=== PATIENT | female | born 1965 | race Caucasian/White ===

== ENCOUNTER → 2017-03-08 | Outpatient (CLI) | payer BC ==
[~2017-03-08] MED LIST: ASA325 MG PO; CELEBREX200 MG PO; EFFEXOR XR75 MG PO; MIRALAX PACKET17 GM PO; OXY IR DPS5 MG PO; PROTONIX40 MG PO; SENOKOT S1 TAB PO; TYLENOL DPS325 MG PO; ULTRAM DPS50 MG PO; VASERETIC 5-12.1 TAB PO; ZOLOFT DPS50 MG PO
== END | disposition home or self-care (01) ==
LOC: PTH.S 10:56
DX: Z01.818 Encounter for other preprocedural examination (principal); I10 Essential (primary) hypertension

== ENCOUNTER 2017-03-23 10:10 | Inpatient (IN) | payer BC ==
[~2017-03-23] VITALS: Ht 162.6 cm; Wt 102.1 kg
--- NOTE | 2017-03-23 13:48 | HP ---
ADMIT: 03/23/2017 [facility] MR[facility] [id number] [address] [place] [id number] PETER TURNER [address] [place] [address] Pre-OP History and Physical SEX: F AGE: 51 : 1965 DATE OF SERVICE: CHIEF COMPLAINT: Left knee pain. HISTORY OF PRESENT ILLNESS: The patient is a 51-year-old white female with left knee DJD, severe on the patella. She has failed nonoperative measures. She desires total knee arthroplasty that she is several years and feels like she is ready for it. PAST MEDICAL HISTORY: Significant osteoarthritis, GERD, hypertension, and depression. PAST SURGICAL HISTORY: She has had knee replacement, knee arthroscopy, hysterectomy, and colonoscopy. MEDICATIONS: 1. Omeprazole. 2. Enalapril. 3. Zoloft. 4. Effexor. ALLERGIES: NO ALLERGIES. SOCIAL HISTORY: The patient does not smoke. Occasionally drinks alcohol. PHYSICAL EXAMINATION: HEENT: Normocephalic and atraumatic. CARDIOVASCULAR: Regular rate and rhythm. LUNGS: Benign. ABDOMEN: Benign. NEUROLOGIC: Awake and oriented x3. MUSCULOSKELETAL: Shows the patient has no effusion of the knee, full extension 130 degrees of flexion. Significant patellofemoral crepitus and pain. No ligamentous laxity. Tender at the medial joint line and the patellofemoral joint. ADMIT: 03/23/2017 RM[facility]LOC: [facility] MR#: [id number] [address] [place] [id number] PETER TURNER [address] [place] [address] Pre-OP History and Physical SEX: F AGE: 51 : 1965 IMAGING DATA: X-rays show left knee DJD, [id number] along the patellofemoral joint, medial compartment narrowing consistent with DJD. ASSESSMENT AND PLAN: Left knee degenerative joint disease. At this point in time, we will plan a left total knee arthroplasty. The patient understands the risks and benefits of the surgical intervention, which include but not limited to infection, DVT, arthrofibrosis, neurovascular injury, early loosening, etc and desires to proceed. She will see a medical doctor, Dr. Moreno, for preoperative medical clearance and will follow her postoperatively in the hospital for anticoagulation and medical issues that may arise. Please refer to that H and P for any in-depth medical issues or medication changes. Baljit Espinosa MD/ solitario JOB #: [id number] CC: Baljit Espinosa, Attending Physician UNKNOWN, Family Physician
[2017-03-26] MEDS ORDERED: ZOLOFT DPS50 MG PO (17:45)
[2017-03-26] MEDS ORDERED: PROTONIX40 MG PO (17:45)
[2017-03-26] MEDS ORDERED: EFFEXOR XR75 MG PO (17:45)
[2017-03-26] MEDS ORDERED: MIRALAX PACKET17 GM PO (17:46)
[2017-03-26] MEDS ORDERED: VASERETIC 5-12.1 TAB PO (17:46)
[2017-03-26] MEDS ORDERED: SENOKOT S1 TAB PO (17:46)
[2017-03-26] MEDS ORDERED: ASA325 MG PO (17:47)
[2017-03-26] MEDS ORDERED: CELEBREX200 MG PO (17:48)
[2017-03-26] MEDS ORDERED: ULTRAM DPS50 MG PO (17:48)
[2017-03-26] MEDS ORDERED: TYLENOL DPS325 MG PO (17:48)
[2017-03-26] MEDS ORDERED: OXY IR DPS5 MG PO (17:49)
--- NOTE | 2017-03-30 11:49 | OR ---
ADMIT: 03/23/2017 RM/LOC: [address] [facility] MR#: [id number] [facility]#: [id number] [address] [phone] PETER TURNER [address] [place] [id number] Operative/Delivery Room Report SEX: F AGE: 51 : 1965 SURGERY DATE: 03/23/2017 SURGEON: Baljit Espinosa MD PREOPERATIVE DIAGNOSIS: Left knee degenerative joint disease. POSTOPERATIVE DIAGNOSIS: Left knee degenerative joint disease. PROCEDURE PERFORMED: Left total knee arthroplasty with a Reginald and Reginald system, size 2.5 posterior stabilized femoral component, size 2.5 tibial tray. We used a size 38 patellar button, a 10 mm tibial insert. LYE PEEL OPERATOR: USHA Ruffin ANESTHESIA: Spinal. ESTIMATED BLOOD LOSS: Minimal. FLUIDS: Per anesthetic record. COMPLICATIONS: None. DRAINS: One. TOURNIQUET TIME: Approximately 56 minutes. CONDITION ON DISCHARGE: The patient returned to the recovery room in fair condition. INDICATIONS: The patient has been having left knee pain, refractory to nonoperative treatment. She has severe DJD of the knees, first along the patellofemoral joint. She desired total knee arthroplasty. She understood the risks and benefits of the procedure and desired to proceed with the operation. DESCRIPTION OF PROCEDURE: The patient was taken to the OR, transferred to the OR table. Spinal placed. She was laid in the supine position. All bony prominences were well padded. A well-padded tourniquet applied to the left lower extremity. The left lower extremity was prepped and draped in the usual sterile fashion. It was exsanguinated and tourniquet inflated to 350 mmHg. Incision was made starting over the medial aspect of the tibial tubercle, carried proximal to the patella through the skin and subcutaneous tissue with a skin knife. Medial arthrotomy was then performed with #10 blade. Patella everted, knee flexed. ACL, PCL, mediolateral menisci then excised. Step drill was then used to open the intramedullary canal of the femur. I placed an IM alignment guide with the distal femoral cutting block down the intramedullary canal of the femur, set at 11 mm of resection, 5 degrees of valgus cut and pinned it to the anterior aspect of the distal femur. I removed the IM alignment guide and cut the distal femur using an oscillating ADMIT: 03/23/2017 RM/LOC: [address] [facility] MR#: [id number] [address] [id number] [address] [place] [address] Operative/Delivery Room Report SEX: F AGE: 51 : 1965 saw. I removed this cutting block and sized the distal femur at a 2.5. I placed a 2.5 four-in-one cutting block on the distal aspect of the femur in 3 degrees of external rotation. I made the 4 appropriate cuts using an oscillating saw. I removed this cutting block, placed the box cutting jig on the distal aspect of the femur. I cut the box of the distal femur using a reciprocating saw. The proximal tibia was then cut perpendicular to the long axis of the tibial shaft using the proximal tibial cutting guide and oscillating saw. The posterior aspect of the patella was cut flush with the posterior aspect of the quadriceps, patella tendons using the patella cutting saw, this was sized to a 38 and step drilled with the guide. Trial components were then placed. A 2.5 tibial tray with a 10 mm insert gave excellent range of motion, stability, and patellar tracking. Thus, the femoral component was step drilled. The tibial component was step drilled and cruciate punched. The trial components were then removed. The knee was thoroughly injected with Exparel-like compound and the knee was thoroughly irrigated with bacitracin solution and dried. I then cemented the tibia, patella, and femoral components into place removing all the extraneous cement as it dried. I then impacted the 10 mm insert in the tibial tray and ran the knee through range of motion. It had excellent range of motion, stability, and patellar tracking. Thus, one deep drain was then placed. The medial arthrotomy was closed using #1 Vicryl. Subcutaneous tissue was closed using 2-0 Vicryl. Skin was closed using crystal. Wounds were washed, dried, and dressed with sterile Adaptic, 4x4s, ABD, Webril, and an Aleksey wrap. Drapes were removed. Tourniquet was let down. The patient was transferred back to the recovery room in fair condition. Baljit Espinosa MD/ solitario JOB #: [id number] CC: Baljit Espinosa, Attending Physician Jazlyn Moreno, Family Physician
--- NOTE | 2017-03-31 07:28 | CO ---
ADMIT: 03/23/2017 RM/LOC: [facility] MR#: [id number] [address] [address] PETER VALVERDE [address] [place] [id number] Consultation Report SEX: F AGE: 51 : 1965 DATE OF CONSULTATION: 03/08/2017 ATTENDING PHYSICIAN: Baljit Espinosa CONSULTING PHYSICIAN: Jazlyn Moreno MD HISTORY OF PRESENT ILLNESS: Ms. Valverde presents today in clinic for preop evaluation for planned left total knee arthrotomy to be performed by Dr. Espinosa on 03/23/2017. She has a past medical history of degenerative arthritis and had three surgical procedures on her right knee with ultimate total knee arthrotomy. She has a history of depression, history of vasomotor instability, recurrent hot flashes, history of gastroesophageal reflux disease, and history of hypertension, which is stable. She reports that she has had progressive pain and discomfort in this left knee and presents for surgical intervention. FAMILY HISTORY: Her father had an aortic aneurysm. Her mother had heart disease and diabetes. CURRENT MEDICATIONS: 1. Enalapril/hydrochlorothiazide 5/12.5 one tablet daily. 2. Ibuprofen 200 mg 8 tablets p.o. every 6 hours as needed. 3. Omeprazole 40 mg daily. 4. Sertraline 50 mg daily. 5. Tramadol 50 mg 1 tablet every 6 hours p.r.n. 6. Venlafaxine ER 75 mg daily. SOCIAL HISTORY: She is . No tobacco or alcohol. CURRENT ALLERGIES: To hay fever, ragweed, and trees, as well as she has gastric intolerance to Augmentin and Zithromax. REVIEW OF SYSTEMS: She reports that her general sense of health is good. She does have a history of being overweight. Her activity tolerance and endurance is stable. She has a young grandchild, which she is very much involved in his care, so she is very busy with him and his activities. She has had no anterior chest pain or chest pressure. Denies any increasing shortness of breath or respiratory distress. Denies any changes in her bowel or bladder habits or any other significant arthritic complaints. PHYSICAL EXAMINATION: GENERAL: She is alert, articulate. HEENT: Normal. HEART: Regular rhythm without murmur or rub. No JVD. No carotid bruit. HEART: Regular rhythm. LUNGS: Clear, but diminished to auscultation. ABDOMEN: Soft, nontender, and nondistended. EXTREMITIES: No evidence of edema. ADMIT: 03/23/2017 RM/LOC: [facility] MR#: [id number] [address] [address] [place] [address] Consultation Report SEX: F AGE: 51 : 1965 LABORATORY DATA: White blood cell count is 5.6, hemoglobin 12.4, and platelet count of 280,000. Sodium of 140, potassium 4.2, BUN and creatinine of 16 and 1.0. Blood sugar of 99. Her EKG showed normal sinus rhythm. ASSESSMENT: Admission of a 51-year-old, white female for planned left total knee arthrotomy. Past medical history of hypertension, vasomotor instability with hot flashes, history of gastroesophageal reflux disease, chronic knee pain, and degenerative arthritis. At this time, I see no contraindications proceeding with surgery. She will be a good candidate for full strength aspirin therapy in the postop. I will follow her closely and we will continue her care throughout her hospitalization. Jazlyn Moreno MD/ solitario JOB #: [id number] CC: Baljit Espinosa, Attending Physician UNKNOWN, Family Physician
--- NOTE | 2017-04-13 13:40 | DS ---
ADMIT: 03/23/2017 RM/LOC: [facility] MR#: [id number] [facility]#: [id number] [address] [address] PETER TURNER [address] [place] [id number] General Discharge Summary SEX: F AGE: 51 : 1965 ADMISSION DATE: 03/23/2017 DISCHARGE DATE: 03/25/2017 DATE OF SURGERY: 03/23/2017. REASON FOR ADMISSION: An elective left total knee arthroplasty. HISTORY OF PRESENT ILLNESS: A 51-year-old, white female with left knee degenerative joint disease with markedly severe patellofemoral arthritis. She has failed nonoperative measures and now she desires for an elective total knee arthroplasty at this point. She has been put off for several years and would like to proceed with it. PREOPERATIVE DIAGNOSIS: Left knee degenerative joint disease. POSTOPERATIVE DIAGNOSIS: Left knee degenerative joint disease. PROCEDURE PERFORMED: Left total knee arthroplasty. SURGEON: Baljit Espinosa MD UTILITY WORKER ROLLER SHOP: USHA Slaughter COMPLICATIONS: None. ESTIMATED BLOOD LOSS: Minimal. ANESTHESIA: Spinal. PAST MEDICAL HISTORY: 1. Osteoarthritis. 2. GERD. 3. Hypertension. 4. Depression. HOSPITAL COURSE: The patient was admitted on 03/23/2017 and discharged on 03/25/2017, with a length of stay of 2 days and discharge disposition home with self-care. While the patient was in the hospital, the pain was well managed with oral analgesics as well as intravenous analgesics from time to time as necessary. Each day they were in the hospital, they were seen by Orthopedics. Questions and concerns were answered and addressed at that time. The patient's vital signs stable, within normal limits, and her hemoglobin fell to a low of 9.7. Overall, the patient handled the acute postoperative phase of the procedure very well. They also worked with occupational and physical therapy services. There are no questions on either libertarian with that. They met with Social Work Services prior to discharge. Discussed the discharge disposition home with self-care was decided upon, and all was in agreement. Instructions were given to the patient prior to being discharged, and any final questions and concerns were answered. ADMIT: 03/23/2017 RM/LOC: [address] [facility] MR#: [id number] [address] [address] PETER TURNER [address] [place] [address] General Discharge Summary SEX: F AGE: 51 : 1965 DISCHARGE MEDICATIONS: 1. Protonix 40 mg daily. 2. Zoloft 50 mg p.o. daily. 3. Effexor XR 50 mg p.o. daily. 4. Hydrochlorothiazide 12.5 mg p.o. daily. 5. Tramadol 50 mg 1 to 2 by mouth every 4 to 6 hours p.r.n. 6. OxyIR 5 mg 1 to 2 p.o. 4 to 6 hours. 7. Aspirin 325 mg daily for 6 weeks. DISCHARGE DIAGNOSIS: Left knee degenerative joint disease, status post elective left total knee arthroplasty. DISCHARGE INSTRUCTIONS: The patient is going to come back to see Orthopedics in 2 weeks following date of surgery. They are going to follow up with primary care as advised needed. They are going to wear CHELA hose and leg immobilizer at night for the first 4 to 6 weeks. They are going to schedule outpatient physical therapy sessions based on their own time schedule and needs. They were asked to contact [facility] if they had any questions or concerns prior to the first followup appointment. USHA Jacobs / Baljit Espinosa MD / solitario JOB #: [id number] CC: Baljit Espinosa MD, Attending Physician Jazlyn Moreno MD, Family Physician
== END 2017-03-25 12:50 | disposition home or self-care (01) | DRG 470 ==
LOC: WOR 10:10 → 5MS 10:10
PROVIDERS: ADMIT Orthopaedic Surgery
PROC: 0SRD0J9 Replacement of Left Knee Joint with Synthetic Substitute, Cemented, Open Approach (ICD-10-PCS; principal; 2017-03-23)
DX: M17.12 Unilateral primary osteoarthritis, left knee (principal); I10 Essential (primary) hypertension; K21.9 Gastro-esophageal reflux disease without esophagitis; F32.9 Major depressive disorder, single episode, unspecified; Z96.651 Presence of right artificial knee joint